=== PATIENT | male | born 2000 | race Caucasian/White ===

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

== ENCOUNTER 2022-08-13 18:32 | Emergency (ER) | payer OTHER, SELFPAY ==
[~2022-08-13 18:32] MED LIST: Iopamidol 370 76% 100 ML VIAL ONE; Sodium Chloride 0.9% 1,000 ML BAG ONE
[2022-08-13 18:58] LABS: #Basophils 0.1 thou/uL (0.0-0.2); #Eosinphils 0.1 thou/uL (0.0-0.7); #Lymphocytes 3.3 thou/uL (1.20-3.40); #Monocytes 0.6 thou/uL (0.11-0.59); #Neutrophils 4.6 thou/uL (1.40-6.50); %Basophils 1.5 % (0.0-1.0); %Eosinophils 0.9 % (0.0-10.0); %Monocytes 6.7 % (0.0-10.0); %Neutrophils 52.9 % (42.0-75.0); Hemoglobin 16.5 g/dL (14.0-18.0); Mean Corpuscular Hemoglobin 29.7 pg (27.0-31.0); Mean Corpuscular Volume 90.2 fL (78.0-98.0); Mean Platelet Volume 6.6 fL (7.4-10.4); Platelet Count 307 thou/uL (130-400); RBC Distribution Width 11.4 % (11.5-14.5); Red Blood Cell (RBC) Count 5.54 mill/uL (4.70-6.10); White Blood Cell (WBC) Count 8.7 thou/uL (4.8-10.8)
[2022-08-13 19:02] LABS: Prothrombin Time 13.1 sec (12.0-14.7)
[2022-08-13 19:03] LABS: PTT 23.2 sec (22.9-36.1)
[2022-08-13 19:12] LABS: ALT (SGPT) 53 U/L (8-55); AST (SGOT) 48 U/L (5-34); Albumin 5.1 g/dL (3.5-5.0); Alkaline Phosphatase 59 U/L (40-110); Anion Gap 18 mmol/L (10-20); BUN (Urea Nitrogen) 11 mg/dL (8.9-20.6); Bilirubin, Total 0.6 mg/dL (0.2-1.2); Calc. Creatinine Clearance 0 mL/min (70-130); Carbon Dioxide 21 mmol/L (22-29); Chloride 105 mmol/L (98-107); Estimated GFR 101; Globulin 2.6 g/dL (2.4-3.5); Glucose 101 mg/dL (70-105); Protein, Total 7.7 g/dL (6.0-8.3); Sodium 140 mmol/L (136-145)
[2022-08-13 19:13] LABS: Acetaminophen Less than 10.0 mcg/mL (10.0-30.0); Alcohol 178 mg/dL (Less than 10); Salicylate Less than 8.0 mg/dL (15.0-30.0)
[2022-08-13] MEDS ORDERED: Boostrix 0.5 ML (Tdap) VIAL (>/=7 yrs of age) ONE (19:17)
[2022-08-13] MEDS ORDERED: CEFAZOLIN 2 GM VIAL ONE (19:52)
[2022-08-13 19:53] LABS: Amphetamine Not Detected (NotDetected); Barbiturates Screen Not Detected (NotDetected); Benzodiazepine Screen Not Detected (NotDetected); Cocaine Metabolite Screen Not Detected (NotDetected); Medtox Control Line Valid? VALID (VALID); Methadone Not Detected (NotDetected); Methamphetamine Not Detected (NotDetected); Opiate Screen Not Detected (NotDetected); Oxycodone Screen Not Detected (NotDetected); Phencyclidine (PCP) Not Detected (NotDetected); THC/Cannabinoid Screen Detected (NotDetected); Tricyclic Screen Not Detected (NotDetected)
[2022-08-13] MEDS ORDERED: Sodium Chloride 0.9% 100 ML ONE (19:53)
[2022-08-13] MEDS ORDERED: Lidocaine 1% w/Epinephrine 1:100K 20 ML VIAL ONE (19:59)
[2022-08-13] MEDS ORDERED: Lidocaine 2% 20 ml MDV ONE (20:25)
[2022-08-13] MEDS ORDERED: Bacitracin 1 PK ONE (21:01)
[2022-08-13] MEDS ORDERED: Morphine 4 MG/ML VIAL ONE (21:16)
== END 2022-08-13 21:35 | disposition home or self-care (01) ==
LOC: MADERS 18:32
DX: S22.41XA Multiple fractures of ribs, right side, initial encounter for closed fracture (principal); S02.2XXA Fracture of nasal bones, initial encounter for closed fracture; S01.21XA Laceration without foreign body of nose, initial encounter; S01.81XA Laceration without foreign body of other part of head, initial encounter; S05.41XA Penetrating wound of orbit with or without foreign body, right eye, initial encounter; S05.42XA Penetrating wound of orbit with or without foreign body, left eye, initial encounter; S50.01XA Contusion of right elbow, initial encounter; F17.210 Nicotine dependence, cigarettes, uncomplicated; F10.129 Alcohol abuse with intoxication, unspecified; V28.09XA Other motorcycle driver injured in noncollision transport accident in nontraffic accident, initial encounter; Y93.55 Activity, bike riding; Y90.6 Blood alcohol level of 120-199 mg/100 ml
CPT/HCPCS: 12015; 70450; 70486; 71260; 72125; 74177; 80053; 80306; 80307; 85025; 85610; 85730; 90715; 96365; 96375; J0690; J2270; J3490; J7050; Q9967